=== PATIENT | female | born 1995 | race Caucasian/White ===

== ENCOUNTER 2016-11-05 20:20 | Emergency (ER) | payer BC ==
[~2016-11-05] VITALS: Ht 165.1 cm; Wt 93.0 kg
[2016-11-05 20:23] VITALS: BP 141/87
[2016-11-05] MEDS ORDERED: ONDANSETRON 4 MG TAB.RAPDIS SL ONE (20:30)
[2016-11-05] MEDS ORDERED: IBUPROFEN 600 MG TABLET PO ONE ×2 (20:30→20:34)
[2016-11-05] MEDS ORDERED: ONDANSETRON 4 MG TAB.RAPDIS ONE (20:34)
== END 2016-11-05 20:41 | disposition home or self-care (01) ==
LOC: ER 20:20
DX: H66.91 Otitis media, unspecified, right ear (principal); R11.2 Nausea with vomiting, unspecified; J06.9 Acute upper respiratory infection, unspecified; Z87.442 Personal history of urinary calculi
CPT/HCPCS: A4606; Q0162; Z7610

== ENCOUNTER 2016-12-25 11:48 | Emergency (ER) | payer BC ==
[~2016-12-25] VITALS: Ht 165.1 cm; Wt 86.2 kg
[2016-12-25 12:02] VITALS: BP 135/81
== END 2016-12-25 14:29 | disposition home or self-care (01) ==
LOC: ER 11:51
DX: B34.9 Viral infection, unspecified (principal); Z87.442 Personal history of urinary calculi; Z90.49 Acquired absence of other specified parts of digestive tract; Z98.890 Other specified postprocedural states
CPT/HCPCS: A4606; Z7610

== ENCOUNTER 2017-03-03 12:57 | Emergency (ER) | payer BC, MEDICAID ==
[~2017-03-03] VITALS: Ht 165.1 cm; Wt 77.1 kg
--- NOTE | 2017-03-03 12:57 | NUR ---
C/O EPIGASTRIC PAIN HX OF GERD. PLACED ON MONITOR. AWAITNG MD ORDER
[2017-03-03] MEDS ORDERED: LIDOCAINE VISCOUS 2% UD 15 ML UDC ONE (14:18)
[2017-03-03] MEDS ORDERED: MAG HYDROX/AL HYDROX/SIMETH 30 ML UDC ONE (14:18)
[2017-03-03] MEDS ORDERED: MAG HYDROX/AL HYDROX/SIMETH 30 ML UDC PO ONE (14:30)
[2017-03-03] MEDS ORDERED: LIDOCAINE VISCOUS 2% UD 15 ML UDC MM ONE (14:30)
[2017-03-03 14:33] LABS: BASOPHILS % (AUTO) 0.3 % (0.0-2.0); EOSINOPHILS % (AUTO) 0.3 % (0.0-6.0); HEMATOCRIT 40 % (33-45); HEMOGLOBIN 13.5 g/dL (11.5-14.8); LYMPHOCYTES # (AUTO) 1.8 /CMM (0.8-4.8); LYMPHOCYTES % (AUTO) 24.2 % (20.0-44.0); MEAN CORPUSCULAR HEMOGLOBIN 27 PG (26.0-33.0); MEAN CORPUSCULAR HGB CONC 34 g/dl (31.0-36.0); MEAN CORPUSCULAR VOLUME 81 fL (82-100); MONOCYTES # (AUTO) 0.5 /CMM (0.1-1.30); MONOCYTES % (AUTO) 6.4 % (2.0-12.0); NEUTROPHILS # (AUTO) 5.2 /CMM (1.8-8.9); NEUTROPHILS % (AUTO) 68.8 % (43.0-81.0); PLATELET COUNT (AUTO) 273 /CMM (150-450); RDW COEFFICIENT OF VARIATION 13.7 (11.5-15.0); RED BLOOD CELL COUNT(AUTO) 4.99 MIL/uL (4.0-5.2); WHITE BLOOD COUNT (AUTO) 7.5 K/uL (4.3-11.0)
[2017-03-03 14:45] LABS: CALCIUM, SERUM 8.4 mg/dL (8.5-10.1); CREATININE 0.6 mg/dL (0.6-1.3); POTASSIUM 3.9 mmol/L (3.5-5.1)
[2017-03-03 14:50] LABS: ALBUMIN 3.6 g/dL (3.4-5.0); BILIRUBIN,DIRECT 0.1 mg/dL (0.0-0.2); BILIRUBIN,TOTAL 0.5 mg/dL (0.2-1.0); TOTAL PROTEIN, SERUM 7.4 g/dL (6.4-8.2)
[2017-03-03 14:53] LABS: APPEARANCE,URINE SL CLOUDY (CLEAR); BILIRUBIN,URINE NEGATIVE (NEGATIVE); BLOOD, URINE NEGATIVE Ery/uL (NEGATIVE); COLOR,URINE YELLOW (YELLOW); KETONES,URINE NEGATIVE (NEGATIVE); LEUKOCYTE ESTERASE ,URINE TRACE (NEGATIVE); NITRITE, URINE NEGATIVE (NEGATIVE); PH,URINE 8.5 (5.0-8.0); PROTEIN,URINE NEGATIVE (NEGATIVE); UGLUCOSE NEGATIVE (NEGATIVE); UROBILINOGEN,URINE 0.2 EU/dL (0.2)
[2017-03-03 15:01] LABS: PREGNANCY TEST URINE QUAL NEGATIVE (NEGATIVE)
[2017-03-03 15:03] LABS: BACTERIA,URINE Few /HPF (None Seen); RBC,URINE 0-2 /HPF (0-2); SQUAMOUS EPITHELIAL CELL,UR Few /HPF (None Seen)
[2017-03-03 15:04] LABS: URINE AMORPHOUS URATE Many /HPF (None Seen)
[2017-03-03 15:06] VITALS: BP 119/71
== END 2017-03-03 15:11 | disposition home or self-care (01) ==
LOC: ER 13:04
DX: S60.012A Contusion of left thumb without damage to nail, initial encounter (principal); K21.9 Gastro-esophageal reflux disease without esophagitis; K29.70 Gastritis, unspecified, without bleeding; Z90.49 Acquired absence of other specified parts of digestive tract; Z87.442 Personal history of urinary calculi; W23.1XXA Caught, crushed, jammed, or pinched between stationary objects, initial encounter; Y93.89 Activity, other specified; Y92.89 Other specified places as the place of occurrence of the external cause; Y99.9 Unspecified external cause status
CPT/HCPCS: 11740; 36415; 80048; 80076; 81001; 83690; 84703; 85025; 99285; A4606; Z7610; 81000-TC

== ENCOUNTER 2017-09-14 15:58 | Emergency (ER) | payer BC ==
[~2017-09-14] VITALS: Ht 162.6 cm; Wt 86.2 kg
[2017-09-14 16:02] VITALS: BP 137/82
== END 2017-09-14 16:44 | disposition home or self-care (01) ==
LOC: ER 15:59
DX: R10.13 Epigastric pain (principal); R11.2 Nausea with vomiting, unspecified; F10.10 Alcohol abuse, uncomplicated; K21.9 Gastro-esophageal reflux disease without esophagitis; Z86.19 Personal history of other infectious and parasitic diseases; Z87.442 Personal history of urinary calculi; Z90.49 Acquired absence of other specified parts of digestive tract
CPT/HCPCS: A4606; Z7502; Z7610